=== PATIENT | female | born 1985 | race Asian ===

== ENCOUNTER 2018-09-08 21:57 | Emergency (ER) | payer OTHER ==
[~2018-09-08] VITALS: Ht 162.6 cm; Wt 67.6 kg
[2018-09-08 22:10] VITALS: Ht 162.6 cm; Wt 67.6 kg
[2018-09-09 00:20] VITALS: BP 104/68
== END 2018-09-09 00:20 | disposition home or self-care (01) ==
LOC: ED 21:57
DX: R21 Rash and other nonspecific skin eruption (principal); L29.9 Pruritus, unspecified
CPT/HCPCS: J7512; Q0163